=== PATIENT | male | born 1975 | race Two or more races ===

== ENCOUNTER 2019-03-24 11:13 | Emergency (ER) | payer SELFPAY ==
[~2019-03-24] VITALS: Ht 175.3 cm; Wt 86.2 kg
--- NOTE | 2019-03-24 12:10 | NUR ---
pt cooperative-dozing No obvious distress
--- NOTE | 2019-03-24 12:39 | NUR ---
AYUSH YATES AT BEDSIDE
--- NOTE | 2019-03-24 13:30 | NUR ---
Able to tolerate po fluids. Diet served ate 50%. Assisted to BR gait slightly unsteady.
--- NOTE | 2019-03-24 14:36 | NUR ---
THE PATIENT WAS ASSESSED AT BEDSIDE; NO ACUTE EVENTS ASLEEP
--- NOTE | 2019-03-24 18:27 | NUR ---
No acute changes. Status quo updated with plan of care
--- NOTE | 2019-03-24 19:14 | NUR ---
Nurse Knowledge Exchange W/JM Mueller
[2019-03-24 21:58] VITALS: BP 118/72
== END 2019-03-24 21:59 | disposition home or self-care (01) ==
LOC: ER 11:16
DX: G93.40 Encephalopathy, unspecified (principal); F10.129 Alcohol abuse with intoxication, unspecified; R41.82 Altered mental status, unspecified; Y90.9 Presence of alcohol in blood, level not specified

== ENCOUNTER 2019-03-25 20:14 | Emergency (ER) | payer SELFPAY ==
[~2019-03-25] VITALS: Ht 175.3 cm; Wt 85.7 kg
--- NOTE | 2019-03-25 20:32 | NUR ---
PT CAME INTO THE ED C/O +NAUSEA, VOMITING SINCE YESTERDAY. DENIES PAIN. PT AAOX4, VSS, BREATHING EVEN AND UNLABORED ON ROOM AIR. +CHILLS. PT CONNECTED TO THE MONITOR AND POX.
[2019-03-25] MEDS ORDERED: chlorproMAZINE HCL 25 MG TABLET ONE ×2 (20:57→22:30)
[2019-03-25] MEDS ORDERED: LORAZEPAM INJ 2 MG/ML VIAL ONE (20:57)
[2019-03-25 20:58] LABS: BASOPHILS % (AUTO) 0.5 % (0.0-2.0); HEMATOCRIT 32 % (39-51); HEMOGLOBIN 10.8 g/dL (13.5-17.5); LYMPHOCYTES # (AUTO) 0.6 /CMM (0.8-4.8); LYMPHOCYTES % (AUTO) 6.7 % (20.0-44.0); MEAN CORPUSCULAR HGB CONC 34 g/dl (31.0-36.0); MEAN CORPUSCULAR VOLUME 92 fL (80-96); MONOCYTES # (AUTO) 0.6 /CMM (0.1-1.30); MONOCYTES % (AUTO) 6.5 % (2.0-12.0); NEUTROPHILS # (AUTO) 8.2 /CMM (1.8-8.9); NEUTROPHILS % (AUTO) 86.3 % (43.0-81.0); PLATELET COUNT (AUTO) 178 /CMM (150-450); RED BLOOD CELL COUNT(AUTO) 3.45 MIL/uL (4.5-6.0); WHITE BLOOD COUNT (AUTO) 9.6 K/uL (4.3-11.0)
[2019-03-25] MEDS: IV NS 0.9% 1,000 ML BAG IV ONE (21:04)
[2019-03-25] MEDS: LORAZEPAM INJ 2 MG/ML VIAL IV ONE (21:04)
[2019-03-25 21:05] LABS: CALCIUM, SERUM 8.6 mg/dL (8.5-10.1)
[2019-03-25 21:11] LABS: ALBUMIN 3.5 g/dL (3.4-5.0); BILIRUBIN,DIRECT 0.3 mg/dL (0.0-0.2); BILIRUBIN,TOTAL 1.4 mg/dL (0.2-1.0)
[2019-03-25] MEDS ORDERED: CHLORDIAZEPOXIDE HCL 25 MG CAPSULE ONE (22:30)
[2019-03-25] MEDS: CHLORDIAZEPOXIDE HCL 25 MG CAPSULE PO ONE (22:33)
--- NOTE | 2019-03-25 23:11 | NUR ---
IV removed. Catheter intact and site benign. Pressure and 4x4 applied to site. No bleeding noted.Patient given written and verbal discharge instructions. Patient verbalizes understanding of instructions. Patient is ambulatory with steady gait. Refuses offer of [facility]ci placement. Patient given list of available shelters in surrounding area.
[2019-03-25 23:12] VITALS: BP 121/84
== END 2019-03-25 23:13 | disposition home or self-care (01) ==
LOC: ER 20:14
DX: R06.6 Hiccough (principal); R11.2 Nausea with vomiting, unspecified; F10.20 Alcohol dependence, uncomplicated; R00.0 Tachycardia, unspecified; Y90.9 Presence of alcohol in blood, level not specified
CPT/HCPCS: 36415; 80048; 80076; 85025; 96361; 96374; 96375; 96376; 99283; J2060; J7030; Q0161 ×2; J3230